=== PATIENT | male | born 1955 | race Caucasian/White ===

== ENCOUNTER 2020-06-13 17:03 | Emergency (ER) | payer OTHER, SELFPAY ==
[~2020-06-13] VITALS: Ht 162.6 cm; Wt 77.1 kg
[2020-06-13 17:05] VITALS: Ht 162.6 cm; Wt 77.1 kg
[2020-06-13 18:27] LABS: BASOPHIL % 0.4 % (0.2-1.5); PLATELET COUNT 221 x10^3mcL (152-348)
[2020-06-13 18:36] LABS: CALCIUM 7.8 mg/dL (8.5-10.1); CARBON DIOXIDE 24.2 mmol/L (21-32); CREATININE SERUM 1.5 mg/dL (0.7-1.3); POTASSIUM SERUM 4.1 mmol/L (3.5-5.1)
[2020-06-13 18:40] LABS: BILIRUBIN TOTAL 1.18 mg/dL (0.20-1.00)
[2020-06-13 18:41] LABS: CHOLESTEROL/HDL RATIO 2.3; TOTAL PROTEIN, SERUM 5.9 g/dL (6.4-8.2)
[2020-06-13 20:56] VITALS: BP 135/69
== END 2020-06-13 20:56 | disposition home or self-care (01) ==
LOC: ED 17:03
PROVIDERS: Specialist
DX: I11.0 Hypertensive heart disease with heart failure (principal); I50.9 Heart failure, unspecified; E11.9 Type 2 diabetes mellitus without complications; Z98.890 Other specified postprocedural states
CPT/HCPCS: 36600; 83880